=== PATIENT | male | born 1955 | race Caucasian/White ===

== ENCOUNTER 2019-02-03 15:00 | Emergency (ER) | payer BC ==
[2019-02-03] MEDS: 0.9 % SODIUM CHLORIDE 1,000 ML IV ONE ×2 (15:15)
[2019-02-03] MEDS: ONDANSETRON HCL/PF 4 MG/ 2ML VIAL IVP ONE (15:18)
[2019-02-03] MEDS: fentaNYL CITRATE/PF 100 MCG/2 ML INJ. IV ONE ×2 (15:19→15:43)
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
[2019-02-03 15:37] LABS: eGFR (Non-African) > 60
[2019-02-03 16:13] VITALS: BP 122/82
[2019-02-04 10:55] LABS: SEGMENTED NEUTROPHILS % 40 % (39-79)
== END 2019-02-03 15:55 | disposition short-term general hospital (02) ==
LOC: ED 15:00
DX: T21.21XA Burn of second degree of chest wall, initial encounter (principal); T26.42XA Burn of left eye and adnexa, part unspecified, initial encounter; T26.41XA Burn of right eye and adnexa, part unspecified, initial encounter; T31.0 Burns involving less than 10% of body surface; X12.XXXA Contact with other hot fluids, initial encounter
CPT/HCPCS: 80053; 85025; 96361; 96374; 96375; 96376; 99282; 99284; J2405; J3010; J7030; S1016